=== PATIENT | female | born 1975 | race Caucasian/White ===

== ENCOUNTER 2019-03-02 10:14 | Day surgery (SDC) | payer OTHER ==
[~2019-03-02] VITALS: Ht 170.2 cm; Wt 71.8 kg
[2019-03-02 10:30] VITALS: BP 116/83
--- NOTE | 2019-03-02 10:45 | NUR ---
URINE SAMPLE COLLECTED
--- NOTE | 2019-03-02 10:50 | NUR ---
18 G INSERTED INTO PTS L AC, LABS DRAWN
--- NOTE | 2019-03-02 11:00 | NUR ---
PT REFERRED FROM CLINIC FOR MISCARRIAGE. HAS BEEN IN CONTACT WITH DR ROBERTS. C/O INTERMITENT ABDOMINAL CRAMPING X 1 WEEK. LMP 01/19/19. DENIES N/V/D. DENIES VAGINAL BLEEDING. AA0X4. VSS AT THIS TIME. BED IS DOWN, LOCKED, BED RAIL X 1, ERMD TO SEE PT. MED HX: DENIES
[2019-03-02 11:19] LABS: BASOPHILS # (AUTO) 0.1 K/uL (0.00-0.22); BASOPHILS % (AUTO) 0.7 % (0.0-2.0); EOSINOPHILS # (AUTO) 0.2 K/uL (0-0.4); EOSINOPHILS % (AUTO) 2.7 % (0.0-4.0); HEMATOCRIT 40.1 % (36-48); HEMOGLOBIN 13.5 g/dL (12.0-16.0); LYMPHOCYTES # (AUTO) 1.9 K/uL (2.5-16.5); LYMPHOCYTES % (AUTO) 21.1 % (20.5-51.1); MEAN CORPUSCULAR HEMOGLOBIN 30 pg (27-31); MEAN CORPUSCULAR HGB CONC 34 g/dL (33-37); MEAN CORPUSCULAR VOLUME 90.2 fL (80-94); MONOCYTES # (AUTO) 0.4 K/uL (0.8-1.0); MONOCYTES % (AUTO) 4.7 % (1.7-9.3); NEUTROPHILS # (AUTO) 6.3 K/uL (1.8-7.7); NEUTROPHILS % (AUTO) 70.8 % (42.2-75.2); PLATELET COUNT (AUTO) 426 K/uL (140-450); RED BLOOD CELL COUNT(AUTO) 4.44 MIL/uL (4.20-5.40); RED CELL DISTRIBUTION WIDTH 12.9 % (11.6-13.7); WHITE BLOOD COUNT (AUTO) 8.9 K/uL (4.8-10.8)
[2019-03-02 11:24] LABS: APPEARANCE,URINE CLOUDY (CLEAR); BILIRUBIN,URINE NEGATIVE (NEGATIVE); BLOOD, URINE 2+ (NEGATIVE); COLOR,URINE AMBER (YELLOW); LEUKOCYTE ESTERASE ,URINE 1+ (NEGATIVE); NITRITE, URINE POSITIVE (NEGATIVE); PH,URINE 5.5 (5.0-9.0); UGLUCOSE NEGATIVE (NEGATIVE)
[2019-03-02 11:27] LABS: CREATININE 0.7 mg/dL (0.6-1.3); PROTHROMBIN TIME 9.3 secs (10.8-13.4)
--- NOTE | 2019-03-02 11:31 | NUR ---
DR PERRY AT BEDSIDE
[2019-03-02 11:32] LABS: RBC,URINE 0-5 /HPF (0-5)
[2019-03-02 11:33] LABS: ALBUMIN 3.7 g/dL (3.4-5.0); TOTAL BILIRUBIN 0.3 mg/dL (0.0-1.0)
--- NOTE | 2019-03-02 11:39 | NUR ---
LAB AT BEDSIDE FOR BLOOD CULTURES
--- NOTE | 2019-03-02 12:05 | NUR ---
MIKE STARTED DR GRAHAM
[2019-03-02] MEDS ORDERED: cefTRIAXone 1,000 MG VIAL ONE (12:12)
--- NOTE | 2019-03-02 12:34 | NUR ---
VSS AT THIS TIME. AA0X4. BEDSIDE
--- NOTE | 2019-03-02 12:35 | NUR ---
MIKE FINISHED, NADR AT THIS TIME
--- NOTE | 2019-03-02 13:05 | NUR ---
Patient will be admitted to care of DR ROBERTS. Admited to [facility]. Will go to room 123B. Belongings list completed. Report to JUDAH LOPEZ.
--- NOTE | 2019-03-02 13:05 | NUR ---
GOT BEDSIDE REPORT FROM JOHN BAE. PATIENT FROM ER, ON MED SURGE WITH STANDARD PRECAUTIONS IN PLACE. PATIENT AAOX3, FOLLOWS COMMANDS, ON ROOM AIR, AMBULATORY, SKIN INTACT, AND CONTINENT. IV ON L AC 18G, SALINE LOCK, IV PATENT AND INTACT. AT BEDSIDE. BED IN LOW POSITION, CALL LIGHT WITHIN REACH, SIDE RAILS X2 UP
--- NOTE | 2019-03-02 13:06 | NUR ---
CATALINO, ER NURSE STATED SHE ADMINISTERED ROCEPHIN AT 1205 TODAY TO THE PATIENT BUT THEY HAD COMPUTER ISSUES, WHICH IS WHY IT DOES NOT SHOW UP ON THE EMAR
[2019-03-02 14:05] VITALS: BP 104/55
--- NOTE | 2019-03-02 14:28 | NUR ---
PATIENT HAS BEEN SCREENED AND CATEGORIZED LOW NUTRITION RISK. PATIENT WILL BE SEEN WITHIN 7 DAYS OF ADMISSION. 03/09/19 FAIZA HARRIS MBA, RD
--- NOTE | 2019-03-02 15:17 | NUR ---
PATIENT WATCHING TV, ON ROOM AIR, WITH AT BEDSIDE. NO COMPLAINTS AT THIS TIME
[2019-03-02 16:00] VITALS: BP 96/52
--- NOTE | 2019-03-02 16:45 | NUR ---
PATIENT PICKED UP FOR SURGERY
[2019-03-02] MEDS ORDERED: DEXAMETHASONE 4 MG/ML VIAL ONE (16:50)
[2019-03-02] MEDS ORDERED: DESFLURANE 240 ML BTL INH ONE (16:50)
[2019-03-02] MEDS ORDERED: PROPOFOL 200 MG/20 ML VIAL IV ONE (16:50)
[2019-03-02] MEDS ORDERED: ONDANSETRON 4 MG/2 ML VIAL ONE (16:50)
[2019-03-02] MEDS ORDERED: fentaNYL 0.05 MG/ML VIAL ONE (17:02)
--- NOTE | 2019-03-02 18:04 | NUR ---
PATIENT BACK FROM SURGERY
--- NOTE | 2019-03-02 19:18 | NUR ---
gave bedside report to weight shifter nurse. patient endorsed in stable condition
--- NOTE | 2019-03-02 19:20 | NUR ---
RECEIVED PT SITTING UP ON BED JUST FINISHED UP EATING DONNE, TOLERATED WELL, DENIES N/V, VITAL SIGNS STABLE, DENIES ANY PAIN, FOR DISCHARGE TONIGHT WHEN PT VOIDS, PT IS AWARE, CALL LIGHT WITHIN REACH.
--- NOTE | 2019-03-02 19:55 | NUR ---
VITAL SIGNS STABLE, PT AMBULATED TO BR WITH STEADY GAIT AND VOIDED FREELY, PT STATED SCANTY VAGINAL BLEEDING NOTED, DENIES DIZZINESS OR PAIN.
[2019-03-02 20:00] VITALS: BP 106/53
[2019-03-02 20:10] VITALS: BP 106/53
--- NOTE | 2019-03-02 20:30 | NUR ---
DISCHARGE INSTRUCTIONS GIVEN TO BOTH PT AND , VERBALIZED UNDERSTANDING, IV DISCONTINUED WITH CANNULA INTACT, DISCHARGE HOME IN STABLE CONDITION ACCOMPANIED BY VIA PRIVATE VEHICLE.
== END 2019-03-02 22:32 | disposition home or self-care (01) ==
LOC: MED 10:14 → MDS 12:44 → MTU 13:01 → MDS 22:32
PROVIDERS: ATTEND Obstetrics & Gynecology
DX: O02.1 Missed abortion (principal); O73.1 Retained portions of placenta and membranes, without hemorrhage; Z3A.17 17 weeks gestation of pregnancy; Z79.899 Other long term (current) drug therapy
CPT/HCPCS: 36415; 59821; 80053; 81001; 85025; 85610; 86886; 86900; 86901; 87040; 87081; 87086; 87186; 88305; 96365; 99285; J0696; J1100; J2405; J2704; J3010; J7030; J7060

== ENCOUNTER 2019-06-06 13:00 | Emergency (ER) | payer OTHER ==
[~2019-06-06] VITALS: Ht 170.2 cm; Wt 72.3 kg
[2019-06-06 13:06] VITALS: BP 111/91
--- NOTE | 2019-06-06 13:17 | NUR ---
43/F C/O BILATERAL THORACIC BACK PAIN X THIS MORNING. PT REPORTS SHARP PAIN WHEN WALKING OR SNEEZING. DENIES INJURY. PT STATES PAINFUL URINATION LAST WEEK LASTING 3 DAYS. MEDHX:DENIES RX:DENIES
--- NOTE | 2019-06-06 13:28 | NUR ---
URINE SAMPLE WALKED TO LAB.
[2019-06-06 13:35] LABS: APPEARANCE,URINE SL CLOUDY (CLEAR); BILIRUBIN,URINE NEGATIVE (NEGATIVE); BLOOD, URINE 1+ (NEGATIVE); COLOR,URINE YELLOW (YELLOW); LEUKOCYTE ESTERASE ,URINE NEGATIVE (NEGATIVE); NITRITE, URINE NEGATIVE (NEGATIVE); UGLUCOSE NEGATIVE (NEGATIVE)
[2019-06-06 13:53] LABS: WBC,URINE NONE SEEN /HPF (0-5)
--- NOTE | 2019-06-06 14:00 | NUR ---
Patient discharged with v/s stable. Written and verbal after care instructions given and explained. Patient alert, oriented and verbalized understanding of instructions. Ambulatory with steady gait. All questions addressed prior to discharge. ID band removed. Patient advised to follow up with PMD. Rx of NAPROSYN given. Patient educated on indication of medication including possible reaction and side effects. Opportunity to ask questions provided and answered. PT D/C BY DR. PATEL--ALL D/C INSTRUCTIONS PROVIDED BY DR. PATEL.
[2019-06-06 14:23] VITALS: BP 111/91
== END 2019-06-06 14:00 | disposition home or self-care (01) ==
LOC: MED 13:00
DX: S23.3XXA Sprain of ligaments of thoracic spine, initial encounter (principal); X58.XXXA Exposure to other specified factors, initial encounter; Y93.89 Activity, other specified; Y92.89 Other specified places as the place of occurrence of the external cause; Y99.8 Other external cause status
CPT/HCPCS: 81001; 99283

== ENCOUNTER 2024-03-04 23:45 | Inpatient (IN) | payer OTHER ==
[~2024-03-04] VITALS: Ht 170.2 cm; Wt 76.7 kg
[2024-03-04 23:52] VITALS: BP 134/104; PULSE 94; RESP 22; TEMP 97.1; O2SAT 98
[2024-03-05] MEDS ORDERED: ALUMINUM HYD/MAG/SIMETHICONE 30 ML UDC ONE (00:59)
[2024-03-05] MEDS ORDERED: DICYCLOMINE HCL LIQUID 10 MG/5 ML UDC ONE (00:59)
[2024-03-05 01:05] LABS: APPEARANCE,URINE CLEAR (CLEAR); BILIRUBIN,URINE NEGATIVE (NEGATIVE); BLOOD, URINE 1+ (NEGATIVE); COLOR,URINE YELLOW (YELLOW); LEUKOCYTE ESTERASE ,URINE NEGATIVE (NEGATIVE); NITRITE, URINE NEGATIVE (NEGATIVE); PROTEIN,URINE NEGATIVE (NEGATIVE); UGLUCOSE NEGATIVE (NEGATIVE); UROBILINOGEN,URINE 0.2 EU/dL (0.2 - 1)
[2024-03-05] MEDS: KETOROLAC 30 MG/ML VIAL IM ONE (01:08)
[2024-03-05] MEDS: ONDANSETRON 4 MG ODT PO ONE (01:08)
[2024-03-05] MEDS: DICYCLOMINE HCL LIQUID 20 MG, ALUMINUM HYD/MAG/SIMETHICONE 30 ML, LIDOCAINE VISCOUS 2% ... PO ONE (01:09)
[2024-03-05 01:20] LABS: BACTERIA,URINE 10-30 (MOD) /HPF (None Seen); MUCUS,URINE 1+ /LPF (None Seen); SQUAMOUS EPITHELIAL CELL,UR 0-3 (FEW) /LPF (0-3 (FEW)); WBC,URINE 0-5 /HPF (0-5)
[2024-03-05 01:23] LABS: BASOPHILS # (AUTO) 0.1 K/uL (0.00-0.22); BASOPHILS % (AUTO) 0.8 % (0.0-2.0); EOSINOPHILS # (AUTO) 0.4 K/uL (0-0.4); EOSINOPHILS % (AUTO) 2.8 % (0.0-4.0); HEMATOCRIT 37.1 % (36-48); HEMOGLOBIN 12.4 g/dL (12.0-16.0); LYMPHOCYTES % (AUTO) 21.6 % (20.5-51.1); MEAN CORPUSCULAR HEMOGLOBIN 31 pg (27-31); MEAN CORPUSCULAR HGB CONC 34 g/dL (33-37); MEAN CORPUSCULAR VOLUME 91.2 fL (80-94); MONOCYTES # (AUTO) 0.8 K/uL (0.8-1.0); MONOCYTES % (AUTO) 5.4 % (1.7-9.3); NEUTROPHILS # (AUTO) 9.8 K/uL (1.8-7.7); NEUTROPHILS % (AUTO) 69.4 % (42.2-75.2); PLATELET COUNT (AUTO) 414 K/uL (140-450); RED BLOOD CELL COUNT(AUTO) 4.07 MIL/uL (4.20-5.40); WHITE BLOOD COUNT (AUTO) 14.1 K/uL (4.8-10.8)
[2024-03-05 01:38] LABS: ALBUMIN 3.6 g/dL (3.4-5.0); ANION GAP 11.6 (8-16); CALCIUM 8.8 mg/dL (8.5-10.1); CARBON DIOXIDE 25.9 mmol/L (21-32); CREATININE 0.6 mg/dL (0.6-1.3); POTASSIUM 4.5 mmol/L (3.5-5.1); TOTAL BILIRUBIN 0.3 mg/dL (0.0-1.0); TOTAL PROTEIN, SERUM 7.7 g/dL (6.4-8.2)
[2024-03-05] MEDS ORDERED: cefTRIAXone 1,000 MG VIAL ONE (02:00)
[2024-03-05] MEDS: MORPHINE SULFATE 2 MG/ML SYR IVP STA (02:09)
[2024-03-05 02:11] LABS: LACTIC ACID 1.3 mmol/L (0.4-2.0)
[2024-03-05] MEDS: NACL 0.9% 1,000 ML IV ONE (02:20)
[2024-03-05] MEDS ORDERED: KCL 20 MEQ IN 100 mL PREMIX 200 ML IV PRN (05:10)
[2024-03-05] MEDS ORDERED: MAG SULF 2000 MG/WATER PREMIX 50 ML IV PRN (05:10)
[2024-03-05] MEDS ORDERED: MORPHINE SULFATE 4 MG/ML SYR IVP PRN (05:10)
[2024-03-05] MEDS: NACL 0.9% 1,000 ML IV SCH (05:44)
[2024-03-05 08:00] VITALS: PULSE 64; RESP 18; O2SAT 100
[2024-03-05] MEDS: DOCUSATE SODIUM 100 MG GELCAP PO SCH (09:00)
[2024-03-05] MEDS: ACETAMINOPHEN 100 ML IV ONE (09:31)
[2024-03-05] MEDS: LIDOCAINE/EPI 1% 1:100000 20 ML VIAL INJ ONE (09:32)
[2024-03-05] MEDS: BUPIVACAINE-MPF 0.25% 30 ML VIAL INJ ONE (09:32)
[2024-03-05] MEDS: ceFAZolin 2,000 MG VIAL ONE (09:32)
[2024-03-05] MEDS ORDERED: diphenhydrAMINE 50 MG/ML VIAL IVP PRN (10:50)
[2024-03-05] MEDS ORDERED: ONDANSETRON 4 MG/2 ML VIAL IVP PRN (10:50)
[2024-03-05] MEDS: LACTATED RINGERS 1,000 ML IV SCH (10:50)
[2024-03-05] MEDS: HYDROmorphone 1 MG/ML AMP IVP PRN (11:00)
[2024-03-05] MEDS: HYDROmorphone PFS 2 MG/ML SYR ONE (11:59)
[2024-03-05 12:00] VITALS: BP 112/70; PULSE 64; RESP 18; TEMP 97.9; O2SAT 100
[2024-03-05] MEDS: HYDROcodone/APAP 5/325 MG 1 TAB TAB PO PRN (13:50)
[2024-03-05 16:00] VITALS: BP 95/54; PULSE 65; RESP 18; TEMP 97.5; O2SAT 96
[2024-03-05] MEDS: traMADol 50 MG TAB PO PRN (16:42)
[2024-03-05] MEDS: ONDANSETRON 4 MG/2 ML VIAL IVP PRN (16:45)
[2024-03-05 20:00] VITALS: BP 95/52; PULSE 64; PULSE 75; RESP 18; TEMP 97.8; O2SAT 100; O2SAT 96
[2024-03-05] MEDS: MEDS-TO-BEDS MC SCH (21:00)
[2024-03-06 04:00] VITALS: BP 104/55; PULSE 67; RESP 18; TEMP 97.7; O2SAT 97
[2024-03-06 06:44] LABS: BASOPHILS % (AUTO) 0.3 % (0.0-2.0); HEMATOCRIT 33.2 % (36-48); HEMOGLOBIN 11.1 g/dL (12.0-16.0); LYMPHOCYTES # (AUTO) 2.2 K/uL (2.5-16.5); LYMPHOCYTES % (AUTO) 18.6 % (20.5-51.1); MEAN CORPUSCULAR HEMOGLOBIN 31 pg (27-31); MEAN CORPUSCULAR HGB CONC 34 g/dL (33-37); MEAN CORPUSCULAR VOLUME 91.1 fL (80-94); MONOCYTES # (AUTO) 0.8 K/uL (0.8-1.0); MONOCYTES % (AUTO) 6.3 % (1.7-9.3); NEUTROPHILS # (AUTO) 8.9 K/uL (1.8-7.7); NEUTROPHILS % (AUTO) 74.8 % (42.2-75.2); PLATELET COUNT (AUTO) 348 K/uL (140-450); RED BLOOD CELL COUNT(AUTO) 3.64 MIL/uL (4.20-5.40); RED CELL DISTRIBUTION WIDTH 13.1 % (11.6-13.7); WHITE BLOOD COUNT (AUTO) 11.9 K/uL (4.8-10.8)
[2024-03-06 07:15] LABS: ANION GAP 13.3 (8-16); CALCIUM 7.7 mg/dL (8.5-10.1); CARBON DIOXIDE 23.3 mmol/L (21-32); CREATININE 0.6 mg/dL (0.6-1.3); POTASSIUM 3.6 mmol/L (3.5-5.1)
[2024-03-06 07:22] LABS: MAGNESIUM 1.8 mg/dL (1.8-2.4); PHOSPHORUS 2.9 mg/dL (2.5-4.9)
[2024-03-06 08:00] VITALS: BP 117/66; PULSE 79; RESP 18; TEMP 97.8; O2SAT 99
[2024-03-06] MEDS: MAGNESIUM OXIDE 400 MG TAB PO PRN (08:59)
[2024-03-06] MEDS: ACETAMINOPHEN 325 MG TAB PO PRN (09:01)
[2024-03-06 10:47] LABS: ALBUMIN 2.8 g/dL (3.4-5.0); ANION GAP 11.9 (8-16); CALCIUM 7.6 mg/dL (8.5-10.1); CARBON DIOXIDE 24.4 mmol/L (21-32); CREATININE 0.6 mg/dL (0.6-1.3); POTASSIUM 3.3 mmol/L (3.5-5.1); TOTAL BILIRUBIN 0.5 mg/dL (0.0-1.0)
[2024-03-06] MEDS ORDERED: ACET-1182 PO (10:50)
[2024-03-06] MEDS ORDERED: TRAM50TA3 PO (10:50)
[2024-03-06] MEDS: POTASSIUM CHLORIDE 10 MEQ TABER PO PRN (11:02)
[2024-03-06 11:41] VITALS: BP 117/66; PULSE 79; RESP 18; TEMP 97.8
[2024-03-06 16:00] VITALS: BP 121/68; PULSE 81; RESP 18; TEMP 98.3; O2SAT 98
== END 2024-03-06 17:55 | disposition home or self-care (01) | DRG 263 ==
LOC: MED 23:45 → MTU 03-05 05:06 → MED 03-05 05:10 → MTU 03-05 06:21
PROVIDERS: ADMIT Hospitalist; ATTEND Hospitalist
PROC: 0FT44ZZ Resection of Gallbladder, Percutaneous Endoscopic Approach (ICD-10-PCS; principal; 2024-03-05 08:45)
DX: K80.00 Calculus of gallbladder with acute cholecystitis without obstruction (principal); R65.10 Systemic inflammatory response syndrome (SIRS) of non-infectious origin without acute organ dysfunction; E87.1 Hypo-osmolality and hyponatremia; N10 Acute pyelonephritis; Z79.899 Other long term (current) drug therapy; Z88.8 Allergy status to other drugs, medicaments and biological substances
CPT/HCPCS: 36415; 76705; 80048; 80053; 81001; 83605; 83690; 83735; 84100; 85025; 87040; 87081; 87086; 88304; 96372; 96374; 96375; 99285; J0696; J1170; J1885; J2001; J2270; J2405; J3490; J7030; J7060; Q0092; Q0162